=== PATIENT | male | born 1960 ===

== ENCOUNTER 2017-07-09 07:33 | Emergency (ER) | payer MEDICAID ==
[2017-07-09 07:49] VITALS: TEMP 97.9; BMI 25.0
[2017-07-09] MEDS ORDERED: Sodium Chloride 0.9% 1,000 ML IV STA (08:10)
[2017-07-09] MEDS ORDERED: Atrop/Hyosc/Scopal/PB Elixir (120 ml) PO STA (08:11)
[2017-07-09] MEDS ORDERED: Alum-Mag Hydrox-Simethicone Susp (30 mL) PO STA (08:11)
--- NOTE | 2017-07-09 08:16 | ED PDOC ---
Arrival/HPI - General Chief Complaint: Abdominal Pain Time Seen by Provider: 07/09/17 08:05 Historian: Patient - History of Present Illness Narrative History of Present Illness (Text): 07/09/17 08:12 57 yo male, h/o Hypothyroid, presents to the ED c/o nausea, diarrhea and abdominal pain x 3-4days. States abdominal pain is achy and intermittent in the midepigastric area. No vomiting. No fever, chills or bodyaches. He has not taken any meds for symptoms. He feels dehydrated with a generalized headache. No recent travel. No bloody diarrhea. No melena. No urinary symptoms. No back pain. PMD: Clinic on [facility] Past Medical History - Provider Review Nursing Documentation Reviewed: Yes - Travel History Have you recently traveled outside [place] w/in the past 3 mons?: No - Tetanus Immunization Tetanus Immunization: Unknown - Cardiac Hx Cardiac Disorders: No - Pulmonary Hx Respiratory Disorders: No - Neurological Hx Neurological Disorder: No - HEENT Hx HEENT Disorder: No - Renal Hx Renal Disorder: No - Endocrine/Metabolic Hx Endocrine Disorders: Yes Hx Hypothyroidism: Yes - Hematological/Oncological Hx Blood Disorders: No - Integumentary Hx Dermatological Disorder: No - Musculoskeletal/Rheumatological Hx Musculoskeletal Disorders: No - Gastrointestinal Hx Gastrointestinal Disorders: No - Genitourinary/Gynecological Hx Genitourinary Disorders: No - Psychiatric Hx Psychophysiologic Disorder: No Hx Substance Use: No - Anesthesia Hx Anesthesia Reactions: No - Suicidal Assessment Feels Threatened In Home Enviroment: No Family/Social History - Physician Review Nursing Documentation Reviewed: Yes Family/Social History: No Known Family HX Smoking Status: Never Smoked Hx Alcohol Use: Yes Frequency of alcohol use: Socially Hx Substance Use: No Hx Substance Use Treatment: No Allergies/Home Meds Allergies/Adverse Reactions: Allergies No Known Allergies Allergy (Verified 07/09/17 07:48) Review of Systems - Review of Systems Constitutional: Fatigue. absent: Weight Change, Fevers Eyes: Normal ENT: Normal Respiratory: Normal. absent: SOB, Cough Cardiovascular: Normal. absent: Chest Pain Gastrointestinal: Abdominal Pain, Diarrhea, Nausea. absent: Vomiting, Hematochezia, Hematemesis Genitourinary Male: Normal Musculoskeletal: Normal Skin: Normal Neurological: Normal Endocrine: Normal Hemo/Lymphatic: Normal Psychiatric: Normal Physical Exam Vital Signs Reviewed: Yes Vital Signs Temp Pulse Resp BP Pulse Ox 07/09/17 09:29 77 16 127/75 100 07/09/17 07:48 97.9 F 76 17 129/79 98 Temperature: Afebrile Blood Pressure: Normal Pulse: Regular Respiratory Rate: Normal Appearance: Positive for: Well-Appearing, Non-Toxic, Comfortable Pain Distress: None Mental Status: Positive for: Alert and Oriented X 3 - Systems Exam Head: Present: Atraumatic, Normocephalic Pupils: Present: PERRL Extroacular Muscles: Present: EOMI Conjunctiva: Present: Normal Mouth: Present: Moist Mucous Membranes, Normal Tounge Pharnyx: Present: Normal. No: ERYTHEMA, EXUDATE Neck: Present: Normal Range of Motion Respiratory/Chest: Present: Clear to Auscultation, Good Air Exchange. No: Respiratory Distress, Accessory Muscle Use Cardiovascular: Present: Regular Rate and Rhythm, Normal S1, S2. No: Murmurs Abdomen: Present: Normal Bowel Sounds. No: Tenderness, Distention, Peritoneal Signs Back: Present: Normal Inspection Upper Extremity: Present: Normal Inspection. No: Cyanosis, Edema Lower Extremity: Present: Normal Inspection. No: Edema Neurological: Present: GCS=15, CN II-XII Intact, Speech Normal Skin: Present: Warm, Dry, Normal Color. No: Rashes Psychiatric: Present: Alert, Oriented x 3, Normal Insight, Normal Concentration Medical Decision Making ED Course and Treatment: 07/09/17 08:17 57 yo male with abdominal pain, nausea, diarrhea r/o gastroenteritis vs viral syndrome -- Labs -- IVF -- Pepcid IV, Zofran IV 07/09/17 09:28 Patient appears well hydrated and is tolerating PO fluids. His symptoms have improved. Abdomen soft and not tender. He was advised to follow up with his primary care doctor and take medications as prescribed. He was advised to return to the ED if symptoms worsen or any other concerns. - Lab Interpretations Lab Results: 07/09/17 08:50 07/09/17 08:50 Lab Results 07/09/17 08:50: Sodium 141, Potassium 4.0, Chloride 106, Carbon Dioxide 25, Anion Gap 13, BUN 11, Creatinine 0.6 L, Est GFR ( Amer) > 60, Est GFR ( Non-Af Amer) > 60, Random Glucose 97, Calcium 8.3 L, Total Bilirubin 0.3, AST 38 , ALT 31, Alkaline Phosphatase 52, Total Protein 6.8, Albumin 3.8, Globulin 3.0 , Albumin/Globulin Ratio 1.3, Lipase 103 07/09/17 08:50: WBC 5.6, RBC 4.46, Hgb 13.3 L, Hct 40.1 L, MCV 89.9, MCH 29.8, MCHC 33.2, RDW 13.4, Plt Count 161, MPV 10.7, Gran % 77.2 H, Lymph % (Auto) 15.3 L, [place] % (Auto) 6.8 H, Eos % (Auto) 0.5 L, Baso % (Auto) 0.2, Gran # 4.34 , Lymph # (Auto) 0.9 L, [place] # (Auto) 0.4, Eos # (Auto) 0.0, Baso # (Auto) 0.01 I have reviewed the lab results: Yes - Medication Orders Current Medication Orders: Discontinued Medications Al Hydrox/Mg Hydrox/Simethicone (Maalox Plus 30 Ml) 30 ml PO STAT STA Stop: 07/09/17 08:12 Last Admin: 07/09/17 08:55 Dose: 30 ml Belladonna/Phenobarbital ( Elixir) 5 ml PO STAT STA Stop: 07/09/17 08:12 Last Admin: 07/09/17 08:56 Dose: 5 ml Famotidine (Pepcid) 20 mg IVP STAT STA Stop: 07/09/17 08:11 Last Admin: 07/09/17 08:55 Dose: 20 mg IVP Administration Document 07/09/17 08:55 LEANNE (Rec: 07/09/17 08:55 LEANNE [id number]) Charges for Administration # of IVP Administrations 1 Sodium Chloride (Sodium Chloride 0.9%) 1,000 mls @ 1,000 mls/hr IV .Q1H STA Stop: 07/09/17 09:09 Last Admin: 07/09/17 08:45 Dose: 1,000 mls/hr eMAR Start Stop Document 07/09/17 08:45 LEANNE (Rec: 07/09/17 08:55 LEANNE [id number]) Intravenous Solution Start Date 07/09/17 Start Time 08:45 End Date 07/09/17 End time 09:45 Total Infusion Time 60 Lidocaine HCl (Lidocaine 2% Viscous) 15 ml PO STAT STA Stop: 07/09/17 08:12 Last Admin: 07/09/17 08:55 Dose: 15 ml Ondansetron HCl (Zofran Inj) 4 mg IVP STAT STA Stop: 07/09/17 08:11 Last Admin: 07/09/17 08:55 Dose: 4 mg IVP Administration Document 07/09/17 08:55 LEANNE (Rec: 07/09/17 08:55 LEANNE [id number]) Charges for Administration # of IVP Administrations 1 Disposition/Present on Arrival - Present on Arrival Any Indicators Present on Arrival: No History of DVT/PE: No History of Uncontrolled Diabetes: No Urinary Catheter: No History of Decub. Ulcer: No History Surgical Site Infection Following: None - Disposition Have Diagnosis and Disposition been Completed?: Yes Diagnosis: Gastroenteritis Disposition: HOME/ ROUTINE Disposition Time: 09:28 Patient Plan: Discharge Condition: IMPROVED Print Language: [place] Additional Instructions: Mr Otero, thank you for letting us take care of you today. Your provider was Dr. Barragan. You were treated for Gastroenteritis. The emergency medical care you received today was directed at your acute symptoms. If you were prescribed any medication, please fill it and take as directed. It may take several days for your symptoms to resolve. Return to the Emergency Department if your symptoms worsen, do not improve, or if you have any other problems. Please contact your doctor or call one of the physicians/clinics you have been referred to that are listed on the Patient Visit Information form that is included in your discharge packet. Bring any paperwork you were given at discharge with you along with any medications you are taking to your follow up visit. Our treatment cannot replace ongoing medical care by a primary care provider (PCP) outside of the emergency department. Thank you for allowing the [facility] team to be part of your care today. If you had an X-Ray or CT scan: A Radiologist will review the ED reading if any change in treatment is needed we will contact you. If you had a blood, urine, or wound culture: It will take several days for the results, if any change in treatment is needed we will contact you. If you had an STI test: It will take 48 hours for the results. Please call after 1 week if you have not heard back. Prescriptions: Aluminum Hydroxide/Magnesium H [Maalox 30 ml] 30 ml PO Q8 #1 bottle Ranitidine HCl [Zantac] 150 mg PO BID PRN #30 tablet PRN Reason: Pain, Mild (1-3) Referrals: [facility] Profile Req, [Non-Staff] - Follow up with primary Forms: [employer] Connect (Slovenian), WORK NOTE
[2017-07-09 09:02] LABS: BASO # 0.01 K/mm3 (0.0-2.0); BASO % 0.2 % (0.0-3.0); EOS % 0.5 % (1.5-5.0); GRAN # 4.34 (1.4-6.5); GRAN % 77.2 % (50.0-68.0); HEMOGLOBIN 13.3 g/dL (14.0-18.0); LYMPH # 0.9 (1.2-3.4); LYMPH % 15.3 % (22.0-35.0); MEAN CELL VOLUME 89.9 fl (80.0-105.0); MEAN CORPUSCULAR HEMOGLOBIN 29.8 pg (25.0-35.0); MEAN CORPUSCULAR HGB CONC 33.2 g/dl (31.0-37.0); MEAN PLATELET VOLUME 10.7 fl (7.0-11.0); MONO # 0.4 (0.1-0.6); MONO % 6.8 % (1.0-6.0); RBC 4.46 10^6/uL (3.5-6.1); RED CELL DISTRIBUTION WIDTH 13.4 % (11.5-14.5); WHITE BLOOD COUNT 5.6 10^3/ul (4.5-11.0)
[2017-07-09 09:12] LABS: ALB/GLOB RATIO 1.3 (1.1-1.8); ALBUMIN 3.8 g/dL (3.0-4.8); ALT/SGPT 31 U/L (7-56); AST/SGOT 38 U/L (17-59); BLOOD UREA NITROGEN 11 mg/dL (7-21); CALCIUM 8.3 mg/dL (8.4-10.5); GFR AFRICAN-AMERICAN > 60; GFR NON-AFRICAN AMERICAN > 60; LIPASE 103 U/L (23-300)
[2017-07-09 09:30] VITALS: BP 127/75; PULSE 77; RESP 16; O2SAT 100
== END 2017-07-09 09:28 | disposition home or self-care (01) ==
LOC: ED 07:33
DX: K52.9 Noninfective gastroenteritis and colitis, unspecified (principal); E03.9 Hypothyroidism, unspecified
CPT/HCPCS: 80053; 83690; 85025; 96361; 96374; 96375; 99283; J2405; J7040